=== PATIENT | male | born 1965 | race Two or more races ===

== ENCOUNTER 2022-08-02 01:47 | Emergency (ER) | payer OTHER ==
[~2022-08-02] VITALS: Ht 175.3 cm; Wt 103.9 kg
[2022-08-02] MEDS ORDERED: JANUMET XR 1001 EACH (01:57)
[2022-08-02] MEDS ORDERED: DICLOFENAC POTA50 MG PO (02:55)
== END 2022-08-02 03:13 | disposition home or self-care (01) ==
LOC: ER 01:47
DX: S05.92XA Unspecified injury of left eye and orbit, initial encounter (principal); X58.XXXA Exposure to other specified factors, initial encounter; Y93.89 Activity, other specified; Y92.018 Other place in single-family (private) house as the place of occurrence of the external cause; Y99.8 Other external cause status; E11.9 Type 2 diabetes mellitus without complications; Z79.84 Long term (current) use of oral hypoglycemic drugs

== ENCOUNTER 2023-04-05 11:21 | Emergency (ER) | payer OTHER ==
[~2023-04-05] VITALS: Ht 175.3 cm; Wt 99.3 kg
[~2023-04-05 11:21] MED LIST: DICLOFENAC POTA50 MG PO; JANUMET XR 1001 EACH
== END 2023-04-05 15:12 | disposition home or self-care (01) ==
LOC: ER 11:21
DX: S40.862A Insect bite (nonvenomous) of left upper arm, initial encounter (principal); S70.362A Insect bite (nonvenomous), left thigh, initial encounter; L08.9 Local infection of the skin and subcutaneous tissue, unspecified

== ENCOUNTER 2023-04-14 12:28 | Emergency (ER) | payer OTHER ==
[~2023-04-14] VITALS: Ht 175.3 cm; Wt 99.8 kg
[2023-04-14] MEDS ORDERED: DOXYCYCLINE HY100 M2 PO (15:19)
== END 2023-04-14 16:08 | disposition home or self-care (01) ==
LOC: ER 12:28
DX: L03.114 Cellulitis of left upper limb (principal); L03.115 Cellulitis of right lower limb; L03.116 Cellulitis of left lower limb; E11.9 Type 2 diabetes mellitus without complications; Z79.84 Long term (current) use of oral hypoglycemic drugs; F17.210 Nicotine dependence, cigarettes, uncomplicated

== ENCOUNTER → 2024-06-10 | Emergency (ER) | payer OTHER ==
[~2024-06-10] VITALS: Ht 185.4 cm; Wt 113.4 kg
[~2024-06-10] MED LIST changes: +0.9 % SODIUM CHLORIDE 500 ML IV ONE; +BENZONATATE 100 MG CAPSULE PO ONE; +DOXYCYCLINE HY100 M2 PO; +FAMOTIDINE/PF 20 MG/2 ML VIAL ONE; +FAMOtidine 10 MG/ML (4ML VIAL) IV ONE; +LEVALBUTEROL HCL 0.63 MG/3 ML SOLUTION IH ONE; +METFORMIN HCL750 MG PO
[2024-06-10 13:41] LABS: HEMATOCRIT 39.6 % (39.0-48.0); HEMOGLOBIN 13.5 g/dL (13-16.00); MEAN CELL VOLUME 93.3 fL (80.0-100.00); MEAN CORPUSCULAR HEMOGLOBIN 31.7 pg (27.00-32.0); PLATELET COUNT 169 K/uL (150-450); RED BLOOD COUNT 4.25 M/uL (4.00-6.00); RED CELL DISTRIBUTION WIDTH 13.9 % (11.5-14.5)
== END | disposition home or self-care (01) ==
LOC: ER 12:36
PROVIDERS: General Practice
DX: J00 Acute nasopharyngitis [common cold] (principal); Z20.822 Contact with and (suspected) exposure to COVID-19; E11.9 Type 2 diabetes mellitus without complications; Z79.84 Long term (current) use of oral hypoglycemic drugs

== ENCOUNTER → 2024-12-02 11:47 | Outpatient (CLI) | payer OTHER ==
[~2024-12-02 11:47] MED LIST changes: -0.9 % SODIUM CHLORIDE 500 ML IV ONE; -BENZONATATE 100 MG CAPSULE PO ONE; -FAMOTIDINE/PF 20 MG/2 ML VIAL ONE; -FAMOtidine 10 MG/ML (4ML VIAL) IV ONE; -LEVALBUTEROL HCL 0.63 MG/3 ML SOLUTION IH ONE
[2024-12-02 12:53] LABS: URINE APPEARANCE Clear; URINE BACTERIA 50.1 uL (0.0-1933); URINE BILIRRUBIN Negative (NEGATIVE); URINE BLOOD Negative; URINE COLOR Dark Yellow; URINE EPITHELIAL CELLS 36.3 uL (0.0-38.8); URINE GLUCOSE Negative (NEGATIVE); URINE KETONE Trace (NEGATIVE); URINE LEUKOCYTE Negative; URINE NITRATE Negative; URINE PROTEIN Trace (NEGATIVE); URINE RBC 4.4 uL (0.0-20.8); URINE WBC 7.4 uL (0.0-23.2)
[2024-12-02 13:13] LABS: URINE CAST 0.44 uL (0.0-1.40)
== END | disposition home or self-care (01) ==
LOC: LAB 11:47
PROVIDERS: ATTEND Urology
DX: N40.1 Benign prostatic hyperplasia with lower urinary tract symptoms (principal); R31.21 Asymptomatic microscopic hematuria

== ENCOUNTER 2024-12-02 12:32 | Outpatient (CLI) | payer OTHER | END 2024-12-02 12:40 | disposition home or self-care (01) | LOC: SONOGRAMA 12:32 | PROVIDERS: ATTEND Urology | DX: N40.1 Benign prostatic hyperplasia with lower urinary tract symptoms (principal); R31.21 Asymptomatic microscopic hematuria ==

== ENCOUNTER 2024-12-20 12:37 | Outpatient (CLI) | payer OTHER | END 2024-12-20 12:39 | disposition home or self-care (01) | LOC: NUCLEAR 12:37 | DX: I87.2 Venous insufficiency (chronic) (peripheral) (principal); I70.213 Atherosclerosis of native arteries of extremities with intermittent claudication, bilateral legs ==

== ENCOUNTER 2024-12-21 08:47 | Outpatient (CLI) | payer OTHER | END 2024-12-21 08:48 | disposition home or self-care (01) | LOC: NUCLEAR 08:47 | DX: I87.2 Venous insufficiency (chronic) (peripheral) (principal); I70.213 Atherosclerosis of native arteries of extremities with intermittent claudication, bilateral legs ==

== ENCOUNTER 2024-12-26 06:33 | Outpatient (CLI) | payer OTHER ==
[2024-12-26 07:09] LABS: URINE APPEARANCE Cloudy; URINE BILIRRUBIN Negative (NEGATIVE); URINE BLOOD Negative; URINE COLOR Yellow; URINE GLUCOSE Negative (NEGATIVE); URINE KETONE Negative (NEGATIVE); URINE LEUKOCYTE Negative; URINE NITRATE Negative; URINE PROTEIN Negative (NEGATIVE); URINE UROBILINOGEN 0.2 E.U./dl
[2024-12-26 07:11] LABS: URINE BACTERIA 8.5 uL (0.0-1933); URINE RBC 3.8 uL (0.0-20.8); URINE WBC 2.3 uL (0.0-23.2)
[2024-12-26 07:19] LABS: URINE CAST 0.14 uL (0.0-1.40); URINE EPITHELIAL CELLS 1.1 uL (0.0-38.8)
[2024-12-26 07:54] LABS: ALBUMIN 3.6 gm/dL (3.4-5.0); BILIRUBIN TOTAL 0.74 mg/dL (0.3-1.2); CREATININE SERUM 0.81 mg/dL (0.70-1.30); GFR 97.53; GLOBULINA 2.7 G/DL (2.4-3.5); POTASSIUM 4.02 mEq/L (3.5-5.1); TOTAL PROTEIN 6.3 gm/dL (6.4-8.2)
[2024-12-26 13:08] LABS: VITAMIN D3 25 HYDROXY 69.75 ng/ml (30-120)
== END 2024-12-26 06:36 | disposition home or self-care (01) ==
LOC: LAB 06:33
DX: E11.9 Type 2 diabetes mellitus without complications (principal); E88.09 Other disorders of plasma-protein metabolism, not elsewhere classified; E55.9 Vitamin D deficiency, unspecified; E53.8 Deficiency of other specified B group vitamins

== ENCOUNTER 2025-04-13 15:13 | Emergency (ER) | payer OTHER ==
[~2025-04-13] VITALS: Ht 175.3 cm; Wt 117.9 kg
[2025-04-13] MEDS ORDERED: BENZONATATE 100 MG CAPSULE PO STA (17:58)
[2025-04-13 19:07] LABS: BASO % 0.7 % (0.1-1.2); EOS # 0.23 (0.04-0.54); EOS % 1.6 % (0.7-7.0); HEMATOCRIT 37.4 % (40.1-51.0); HEMOGLOBIN 12.7 g/dL (13.7-17.5); LYMPH # 1.78 (1.18-3.74); LYMPH % 12.1 % (19.3-53.1); MEAN CORPUSCULAR HEMOGLOBIN 29.8 pg (25.6-32.2); MONO # 2.19 (0.24-0.82); NEUT # 10.06 (1.56-6.13); NEUT % 68.5 % (34.0-71.1); PLATELET COUNT 235 K/uL (163-369); RED BLOOD COUNT 4.26 M/uL (4.63-6.08); RED CELL DISTRIBUTION WIDTH 12.3 % (11.6-14.4)
[2025-04-13 19:33] LABS: ALBUMIN 3.3 gm/dL (3.4-5.0); BILIRUBIN TOTAL 0.71 mg/dL (0.3-1.2); CALCIUM 8.9 mg/dL (8.5-10.1); CREATININE SERUM 0.9 mg/dL (0.70-1.30); GFR 86.37; GLOBULINA 3.8 G/DL (2.4-3.5); POTASSIUM 3.61 mEq/L (3.5-5.1); TOTAL PROTEIN 7.1 gm/dL (6.4-8.2)
[2025-04-13 19:44] LABS: MONO % 14.9 % (4.7-12.5)
[2025-04-13 19:50] LABS: INFLUENZA A AG NEGATIVE (NEGATIVE); INFLUENZA B AG NEGATIVE (NEGATIVE)
[2025-04-13 19:51] LABS: COVID-19 AG NEGATIVE (NEGATIVE)
[2025-04-13] MEDS ORDERED: ZITHROMAX TRI-500 MG PO (20:23)
[2025-04-13] MEDS ORDERED: TUSSIN DM LIQU118 ML PO (20:23)
== END 2025-04-13 23:04 | disposition home or self-care (01) ==
LOC: ER 15:23
PROVIDERS: Preventive Medicine Public Health & General Preventive Medicine
DX: J06.9 Acute upper respiratory infection, unspecified (principal); Z20.822 Contact with and (suspected) exposure to COVID-19; E11.9 Type 2 diabetes mellitus without complications; Z79.84 Long term (current) use of oral hypoglycemic drugs